=== PATIENT | female | born 1965 | race Caucasian/White ===

== ENCOUNTER 2020-06-28 15:53 | Inpatient (IN) | payer OTHER ==
[~2020-06-28] VITALS: Ht 170.2 cm; Wt 100.8 kg
[~2020-06-28 15:53] MED LIST: Norvasc5 MG PO; ZESTORETIC 20-121 EA PO
[2020-06-28] MEDS ORDERED: DULO30 PO (16:06)
[2020-06-28] MEDS ORDERED: AMLODIPINE-BEN1 EACH PO (16:06)
[2020-06-28] MEDS ORDERED: METO50ER PO (16:07)
[2020-06-28 16:25] LABS: BASOPHILS ABSOLUTE AUTO 0.01 K/mm3 (0.00-0.23); BASOPHILS PERCENT AUTO 0 % (0-2); EOSINOPHILS PERCENT AUTO 0 % (0-6); Hemoglobin 13.5 g/dL (11.5-16.0); IMMATURE GRAN ABSOLUTE AUTO 0.05 K/mm3 (0.00-0.10); IMMATURE GRAN PERCENT AUTO 1 % (0-1); LYMPHOCYTES ABSOLUTE AUTO 1.17 K/mm3 (0.84-5.20); LYMPHOCYTES PERCENT AUTO 17 % (21-46); MONOCYTES ABSOLUTE AUTO 0.41 K/mm3 (0.16-1.47); MONOCYTES PERCENT AUTO 6 % (4-13); Mean Corpuscular HGB 28.8 pg (26.0-34.0); Mean Corpuscular HGB Conc 33.8 g/dL (31.5-36.5); Mean Corpuscular Volume 85 fL (80-100); Mean Platelet Volume 9.2 fL (9.1-12.4); NEUTROPHILS ABSOLUTE AUTO 5.24 K/mm3 (1.96-9.15); NEUTROPHILS PERCENT AUTO 76 % (41-73); Platelet Count 179 K/mm3 (150-400); RDW Coefficient Variation 12.9 % (11.7-14.2); Red Blood Cell Count 4.69 M/mm3 (3.80-5.20); White Blood Cell Count 6.88 K/mm3 (4.00-11.30)
[2020-06-28 16:42] LABS: Alanine Aminotransfer (ALT/SGP 72 U/L (12-78); Albumin, Blood 3.4 g/dL (3.4-5.0); Albumin/Globulin Ratio 0.8 (0.8-1.8); Alk Phos 65 U/L (50-136); Anion Gap 6 mmol/L (6-16); Aspartate Aminotrans (AST/SGOT 71 U/L (12-37); Bilirubin, Total 0.6 mg/dL (0.1-1.0); Blood Urea Nitrogen 11 mg/dL (8-24); Bun/Creatinine Ratio 17.4 (12.0-20.0); CO2, Blood 24 mmol/L (21-32); Calcium, Blood 8.4 mg/dL (8.5-10.1); Chloride, Blood 102 mmol/L (98-108); Creatinine, Blood 0.63 mg/dL (0.40-1.00); Globulin, Blood 4.5 g/dL (2.2-4.0); Glomerular Filtration Rate >60 (60-); Glucose, Blood 124 mg/dL (70-99); Potassium, Blood 3.6 mmol/L (3.5-5.5); Sodium, Blood 132 mmol/L (136-145); Total Protein, Blood 7.9 g/dL (6.4-8.2); Troponin I <0.015 ng/mL (0.000-0.040)
[2020-06-28 17:39] LABS: Influenza A, PCR NEGATIVE (NEGATIVE); Influenza B, PCR NEGATIVE (NEGATIVE); Resp Syncytial Virus, PCR NEGATIVE (NEGATIVE)
[2020-06-28 17:45] LABS: SARS-Cov-2 (COVID-19) PCR, MMC POSITIVE (NEGATIVE)
--- NOTE | 2020-06-29 04:11 | NUR ---
SUMMARY PT REMAINS ON O2. DENIES SOB. PT DEVELOPED SIGNIFICANT COUGH AND PROVIDER ORDERED COUGH MED. PT ALSO HAS BEEN EXPERIENCING DIARRHEA. PT REPORTS TONIGHT IS FIRST TIME HAVING DIARRHEA. PT HAS SLEPT SOME. PT CURRENTLY AWAKE IN NO DISTRESS. CALL LIGHT IN REACH.
[2020-06-29 05:14] LABS: BASOPHILS ABSOLUTE AUTO 0.01 K/mm3 (0.00-0.23); BASOPHILS PERCENT AUTO 0 % (0-2); EOSINOPHILS PERCENT AUTO 0 % (0-6); Hematocrit 35.8 % (33.0-51.0); Hemoglobin 11.8 g/dL (11.5-16.0); IMMATURE GRAN ABSOLUTE AUTO 0.04 K/mm3 (0.00-0.10); IMMATURE GRAN PERCENT AUTO 1 % (0-1); LYMPHOCYTES ABSOLUTE AUTO 0.61 K/mm3 (0.84-5.20); LYMPHOCYTES PERCENT AUTO 10 % (21-46); MONOCYTES ABSOLUTE AUTO 0.15 K/mm3 (0.16-1.47); MONOCYTES PERCENT AUTO 3 % (4-13); Mean Corpuscular HGB 28.4 pg (26.0-34.0); Mean Corpuscular Volume 86 fL (80-100); Mean Platelet Volume 9.2 fL (9.1-12.4); NEUTROPHILS ABSOLUTE AUTO 5.03 K/mm3 (1.96-9.15); NEUTROPHILS PERCENT AUTO 86 % (41-73); Platelet Count 176 K/mm3 (150-400); RDW Standard Deviation 40.8 fL (35.1-46.3); Red Blood Cell Count 4.16 M/mm3 (3.80-5.20); White Blood Cell Count 5.84 K/mm3 (4.00-11.30)
[2020-06-29 05:28] LABS: Anion Gap 9 mmol/L (6-16); Blood Urea Nitrogen 13 mg/dL (8-24); CO2, Blood 26 mmol/L (21-32); Calcium, Blood 7.9 mg/dL (8.5-10.1); Chloride, Blood 103 mmol/L (98-108); Creatinine, Blood 0.65 mg/dL (0.40-1.00); Glomerular Filtration Rate >60 (60-); Glucose, Blood 148 mg/dL (70-99); Potassium, Blood 3.9 mmol/L (3.5-5.5); Sodium, Blood 138 mmol/L (136-145)
--- NOTE | 2020-06-29 19:52 | NUR ---
SUMMARY COVID19+ DX. PT IS A/O X4, PLEASANT AFFECT. STATE CONTINUING WEAKNESS/FATIGUE. CONTINUING COARSE COUGH, MOSTLY NONPRODUCTIVE. HAVE GIVEN GUIF/CODEINE COUGH SYRUP APPROX Q4 TODAY FOR COUGH RELEIF/CONTROL. O2 @ 4-6 L, BIOX HAS RANGED FROM 87%-93%, RESPTHER ASSISTING w O2 NEEDS. PT HAS BEEN LYING PRONE FREQUENTLY TO RELIEVE BREATHING DIFFICULTY, STATES EFFECTIVE. DR CASTELLANO IN THIS AM TO EXPLAIN COVID19 TX, PO DECADRON & IV REMDESIVIR CONTINUE.
--- NOTE | 2020-06-30 04:52 | NUR ---
AUTO ELECTRICAL TECHNICIAN SUMMARY NO ACUTE CHANGES THIS SHIFT. PT AAOX4 AND INDEPENDENT IN ROOM. REMAINS ON 4-5L OF O2 VIA NC. PT STATES AFTER SHE GETS UP TO USE THE RESTROOM SHE WILL OFTEN HAVE A SHORT COUGHING FIT RIGHT AFTER THAT DROPS HER O2 SATS TO HIGH 80'S AT TIMES. PT ALSO A STOMACH SLEEPER WHICH SEEMS TO DROP HER O2 A BIT. DENIES SOB AT REST. DENIES PAIN, N/V. VSS, WILL CONTINUE TO MONITOR.
--- NOTE | 2020-06-30 15:20 | NUR ---
SUMMARY PT IS A/O X4, PLEASANT/COOPERATIVE T/O DAY. SHE CONTINUES TO RECOVER FROM COVID19, CONTINUING COUGH, MOSTLY NONPRODUCTIVE, STATE MINIMAL SPUTUM. LUNGS DECREASED. SHE CONTINUES TO REQUIRE OXYGEN, HAS BEEN ON 7L VIA HIFLO CANNULA T/O DAY. CASTING OPERATOR ASSISTING w O2 TITRATION. BIOX 89-93% DEPENDING ON COUGHING OR EXERTION. SHE HAS BEEN LYING PRONE FREQUENTLY TO PROMOTE BREATHING. DECADRON & IV REMDESIVIR CONTINUE. SHE WAS ABLE TO PARTIALLY SPONGE BATH TODAY.
--- NOTE | 2020-07-01 06:12 | NUR ---
SHIFT SUMMARY PT IS A 54 Y/O FEMALE, ADMITTED FOR COVID-19 AND CURRENTLY IN ENHANCED ISOLATION. PT IS A&O X 4, INDEPENDENT IN THE ROOM. PT IS CURRENTLY ON 7L OF O2 VIA NC, SATTING > 90%. VTIAL SIGNS STABLE. PT WAS MEDICATED ONCE FOR COUGH, AND REPORTED DYSPNEA. DENIES PAIN OR NAUSEA. NO ACUTE CHANGES IN PT CONDITION NOTED. WILL CONTINUE TO MONITOR AND TREAT PER EMAR UNTIL HAND OFF TO DAY SHIFT RN.
--- NOTE | 2020-07-01 10:25 | NUR ---
R WRIST iv SALINE LOCKED AND WNL. R AC LINE DC'D FROM THROMBOPHLEBITIS. NO IV DOCUMENTATION HAS BEEN ENTERED IN [employer].
--- NOTE | 2020-07-01 18:42 | NUR ---
PT RESTING IN BED AFTER DINNER AND PM MEDICATION ADMIN. PT MAKES NO COMPLIANTS OF SOB AT THIS TIME. PT REMAINS ALERT AND ORIENTED X4, LINE SL AND WNL. BED IN LOW POSITION AND CALL IGHT WITHIN REACH. STAFF WILL CONT. TO MONITOR.
--- NOTE | 2020-07-02 04:45 | NUR ---
SHIFT SUMMARY PATIENT HAD NO ACUTE CHANGES OBSERVED. AXOX 4 AND INDEPENDENT IN ROOM. ON 7L O2 NC. VSS/AFEBRILE. PIV REMAINS INTACT. DENIES PAIN AND N/V. WATCHED MOVIES ON PERSONAL ELECTRONIC DEVICE. COOPERATIVE WITH CARE. CALL LIGHT IN REACH. BED IN LOWEST POSITION. WILL CONTINUE TO MONITOR UNTIL DAY SHIFT NURSE ASSUMES CARE.
[2020-07-02 05:27] LABS: Hematocrit 35.4 % (33.0-51.0); Hemoglobin 12.1 g/dL (11.5-16.0); Mean Corpuscular HGB 28.5 pg (26.0-34.0); Mean Corpuscular HGB Conc 34.2 g/dL (31.5-36.5); Mean Corpuscular Volume 84 fL (80-100); Mean Platelet Volume 9.1 fL (9.1-12.4); Platelet Count 278 K/mm3 (150-400); RDW Coefficient Variation 12.3 % (11.7-14.2); RDW Standard Deviation 37.5 fL (35.1-46.3); Red Blood Cell Count 4.24 M/mm3 (3.80-5.20); White Blood Cell Count 6.23 K/mm3 (4.00-11.30)
[2020-07-02 05:56] LABS: Anion Gap 8 mmol/L (6-16); Blood Urea Nitrogen 16 mg/dL (8-24); Bun/Creatinine Ratio 26.9 (12.0-20.0); CO2, Blood 26 mmol/L (21-32); Calcium, Blood 8.2 mg/dL (8.5-10.1); Chloride, Blood 102 mmol/L (98-108); Creatinine, Blood 0.59 mg/dL (0.40-1.00); Glomerular Filtration Rate >60 (60-); Glucose, Blood 101 mg/dL (70-99); Sodium, Blood 136 mmol/L (136-145)
--- NOTE | 2020-07-02 18:15 | NUR ---
SHIFT SUMMARY. A&OX4, INDPENDENT IN ROOM. PT CONTINUES WITH 7L O2 VIA NF NC, LUNGS COARSE T/O, MORE PRONOUNCED IN L LOBES. PT REPORTS MILD SOB WITH EXERTION. PT TOOK SHOWER AND TOLERATED WELL. PT DENIES PAIN, SOB. IV TO L HAND CAUSING DISCOMFORT, IV REMOVED, DR. CASTELLANO NOTIFIED AND RECIEVED ORDERS FOR NO IV ACCESS NEEDED. NO NEW CHANGES OR CONCERNS.
--- NOTE | 2020-07-03 07:42 | NUR ---
07/03/20 0600 ISOLATION MAINTAINED. CHEERFUL MOOD AND COOPERATIVE WITH CARE. GENERALLY FEELING BETTER EACH DAY. VITALS STABLE. TAKING ORAL FLUIDS WELL. OCC. PRODUCTIVE COUGH.
[2020-07-03] MEDS ORDERED: ACET325 PO (14:22)
[2020-07-03] MEDS ORDERED: DEXA6 PO (14:24)
[2020-07-03] MEDS ORDERED: XARELTO20 MG PO (14:25)
--- NOTE | 2020-07-03 17:42 | NUR ---
PATIENT D/C'D TO HOME WITH . DC INSTRUCTIONS AND EDUCATION DISCUSSED WITH PATIENT AND COPY PROVIDED. PORTABLE O2 SENT HOME WITH PATIENT AND JEFF TO DELIVER THE REST OF THE SUPPLIES TO HER HOUSE. PATIENT DENIES ANY FURTHER QUESTIONS OR CONCERNS.
[2020-10-01] MEDS ORDERED: ASPI325 PO (09:04)
== END 2020-07-03 17:31 | disposition home or self-care (01) | DRG 177 ==
LOC: ER 15:53 → MEDS 19:51 → ENPENDDIS 07-03 13:49 → MEDS 07-03 17:31
PROVIDERS: Emergency Medicine; Internal Medicine; ADMIT Internal Medicine
PROC: XW033E5 Introduction of Remdesivir Anti-infective into Peripheral Vein, Percutaneous Approach, New Technology Group 5 (ICD-10-PCS; principal; 2020-06-28)
PROC: XW033E5 Introduction of Remdesivir Anti-infective into Peripheral Vein, Percutaneous Approach, New Technology Group 5 (ICD-10-PCS; 2020-06-29)
PROC: XW033E5 Introduction of Remdesivir Anti-infective into Peripheral Vein, Percutaneous Approach, New Technology Group 5 (ICD-10-PCS; 2020-06-30)
PROC: XW033E5 Introduction of Remdesivir Anti-infective into Peripheral Vein, Percutaneous Approach, New Technology Group 5 (ICD-10-PCS; 2020-07-01)
PROC: XW033E5 Introduction of Remdesivir Anti-infective into Peripheral Vein, Percutaneous Approach, New Technology Group 5 (ICD-10-PCS; 2020-07-02)
DX: U07.1 COVID-19 (principal); J12.82 Pneumonia due to coronavirus disease 2019; J96.01 Acute respiratory failure with hypoxia; E87.1 Hypo-osmolality and hyponatremia; I10 Essential (primary) hypertension
CPT/HCPCS: 0241U; 36415; 71045; 71260; 80048; 80053; 83605; 83880; 84145; 84484; 85025; 85027; 85379; 85651; 86140; 87040; 93005; 93010; 94640; 94760; 94761; 96365; 96367; 99285-25; A9270; J0456; J0696; J1650; J7030; J7050; Q9967

== ENCOUNTER 2020-10-12 12:34 | Day surgery (SDC) | payer OTHER ==
[~2020-10-12] VITALS: Ht 165.1 cm; Wt 100.5 kg
[~2020-10-12 12:34] MED LIST changes: +ACET325 PO; +AMLODIPINE-BEN1 EACH PO; +ASPI325 PO; +DEXA6 PO; +DULO30 PO; +METO50ER PO; +XARELTO20 MG PO
--- NOTE | 2020-10-12 12:56 | NUR ---
PT TO SDS VIA WC. History, Chart, Medications and Allergies reviewed before start of procedure. Lungs clear T/O to Auscultation. Patient confirms NPO status and agrees with scheduled surgery. Patient reports completing Chlorhexadine shower X2 prior to admission to hospital. + VOID.
--- NOTE | 2020-10-12 18:24 | NUR ---
POST OP: BEDSIDE REPORT RECEIVED FROM ASHLEY DAIRY QUALITY ASSURANCE OFFICER. PT TO UNIT AT 1620. PT IS A/O, VSS. SURGICAL SITE WNL, REPORTS N/T TO BLE, SPINAL. ABLE TO WIGGLE TOES AND DENIES PAIN. WILL CTM.
--- NOTE | 2020-10-12 18:26 | NUR ---
SUMMARY: NO CHANGE SINCE POST OP. VSS, CONTINUES TO DENY PAIN. DERMATONE CHECK AT L2. PT DAMIAN PO AND SALINE LOCKED. TXA GIVEN. DENIES NEEDING TO VOID AT THIS TIME. WILL CTM AND REPORT TO LA NENA ALTMAN.
--- NOTE | 2020-10-13 03:03 | NUR ---
SHIFT SUMMARY: POD 1 RIGHT TKA PATIENT IS ALERT AND ORIENTED X4 WHILE AWAKE. SHE HAS BEEN ASLEEP MAJORITY OF THE SHIFT BUT IS EASILY AWAKENED. VS ARE WNL AND IS ON RA. PAIN IS MANAGED WITH OXY AND TYLENOL. AQUACEL ON KNEE IS C/D/I. SHE DENIES NUMBNESS AND TINGLING IN ALL EXTREMITIES. SHE IS ABLE TO WIGGLE FINGERS AND TOES. PATIENT IS A SBA WITH FWW AND GAIT BELT. CALLS APPROPRIATELY. SHE IS TOLERATING PO INTAKE AND IS VOIDING. CALL LIGHT WITHIN REACH. THE PLAN IS TO DISCHARGE HOME LATER TODAY.
[2020-10-13 04:30] LABS: BASOPHILS ABSOLUTE AUTO 0.03 K/mm3 (0.00-0.23); BASOPHILS PERCENT AUTO 0 % (0-2); EOSINOPHILS PERCENT AUTO 0 % (0-6); Hematocrit 35.6 % (33.0-51.0); Hemoglobin 11.9 g/dL (11.5-16.0); IMMATURE GRAN ABSOLUTE AUTO 0.08 K/mm3 (0.00-0.10); IMMATURE GRAN PERCENT AUTO 1 % (0-1); LYMPHOCYTES ABSOLUTE AUTO 1.21 K/mm3 (0.84-5.20); LYMPHOCYTES PERCENT AUTO 8 % (21-46); MONOCYTES PERCENT AUTO 3 % (4-13); Mean Corpuscular HGB 28.9 pg (26.0-34.0); Mean Corpuscular HGB Conc 33.4 g/dL (31.5-36.5); Mean Corpuscular Volume 86 fL (80-100); Mean Platelet Volume 9.2 fL (9.1-12.4); NEUTROPHILS ABSOLUTE AUTO 13.52 K/mm3 (1.96-9.15); NEUTROPHILS PERCENT AUTO 89 % (41-73); Platelet Count 256 K/mm3 (150-400); RDW Coefficient Variation 12.9 % (11.7-14.2); RDW Standard Deviation 40.7 fL (35.1-46.3); Red Blood Cell Count 4.12 M/mm3 (3.80-5.20); White Blood Cell Count 15.24 K/mm3 (4.00-11.30)
[2020-10-13 04:59] LABS: Anion Gap 7 mmol/L (6-16); Blood Urea Nitrogen 11 mg/dL (8-24); Bun/Creatinine Ratio 16.4 (12.0-20.0); CO2, Blood 26 mmol/L (21-32); Calcium, Blood 8.5 mg/dL (8.5-10.1); Chloride, Blood 103 mmol/L (98-108); Creatinine, Blood 0.67 mg/dL (0.40-1.00); Glomerular Filtration Rate >60 (60-); Glucose, Blood 155 mg/dL (70-99); Magnesium, Blood 2.1 mg/dL (1.6-2.4); Potassium, Blood 3.8 mmol/L (3.5-5.5); Sodium, Blood 136 mmol/L (136-145)
[2020-10-13] MEDS ORDERED: ACET500 PO (09:39)
[2020-10-13] MEDS ORDERED: ASPI81CH PO (09:39)
[2020-10-13] MEDS ORDERED: ROXICODONE5 MG PO (09:39)
--- NOTE | 2020-10-13 13:42 | NUR ---
DISCHARGE: PT CLEARED THERAPY. DISCHARGE PACKET PRINTED AND PT EDUCATED. PT GIVEN SCRIPT AND EXTRA AQUACEL DRESSINGS. NO MEDS NEEDED TO FAX TO PHARMACY. PT LEFT UNIT VIA WHEELCHAIR AT ABOUT 1107 VIA WHEEL CHAIR WITH RAHUL TAVERAS.
== END 2020-10-13 11:17 | disposition home or self-care (01) ==
LOC: ORSCMMR 12:34 → SURS 16:48 → ORSCMMR 16:48 → SURS 22:59 → ORSCMMR 22:59 → SURS 10-13 11:17 → ORD 10-15 09:30 → ORSCMMR 10-15 09:30
PROVIDERS: Orthopaedic Surgery
PROC: 8E0Y0CZ Robotic Assisted Procedure of Lower Extremity, Open Approach (ICD-10-PCS; principal; 2020-10-12 17:15)
PROC: 0SRC0JA Replacement of Right Knee Joint with Synthetic Substitute, Uncemented, Open Approach (ICD-10-PCS; principal; 2020-10-12 17:15)
DX: M17.11 Unilateral primary osteoarthritis, right knee (principal); I10 Essential (primary) hypertension; E78.5 Hyperlipidemia, unspecified; E66.01 Morbid (severe) obesity due to excess calories; Z68.36 Body mass index [BMI] 36.0-36.9, adult; Z79.899 Other long term (current) drug therapy; Z79.82 Long term (current) use of aspirin
CPT/HCPCS: 27447; S2900; 36415; 73560-RT; 80048; 83735; 85025; 97110; 97116; 97162; 97530; A9270; C1776; J0171; J0690; J0735; J1100; J1885; J2250; J2370; J2405; J2704; J2795; J3010; J7120

== ENCOUNTER → 2021-12-29 | Outpatient (CLI) | payer OTHER ==
[~2021-12-29] MED LIST changes: +ACET500 PO; +ASPI81CH PO; +ROXICODONE5 MG PO
== END | disposition home or self-care (01) ==
LOC: PLD 13:31 → LAB SHORT 13:31
DX: L57.0 Actinic keratosis (principal)
CPT/HCPCS: 88305

== ENCOUNTER 2022-12-23 15:42 | Emergency (ER) | payer OTHER ==
[~2022-12-23] VITALS: Ht 165.1 cm; Wt 107.0 kg
[2022-12-23 15:54] VITALS: BP 154/100
[2022-12-23] MEDS ORDERED: HYDCHL25 PO (16:04)
== END 2022-12-23 17:50 | disposition home or self-care (01) ==
LOC: ER 15:42
DX: U07.1 COVID-19 (principal); R00.0 Tachycardia, unspecified; E86.0 Dehydration; I10 Essential (primary) hypertension; Z88.0 Allergy status to penicillin; Z88.8 Allergy status to other drugs, medicaments and biological substances; Z79.82 Long term (current) use of aspirin; Z79.899 Other long term (current) drug therapy
CPT/HCPCS: 94640; 94664; A9270; J1885; J7030